=== PATIENT | female | born 1935 | race Caucasian/White ===

== ENCOUNTER → 2016-10-17 | Outpatient (CLI) | payer BC ==
[~2016-10-17] MED LIST: ASPEC81 PO; CHOL100027 PO; Calcium PO; MULTCHW4 PO; OMEP20TA PO; RANI150C4 PO
--- NOTE | 2016-10-17 15:15 | DIAGNOSTIC IMAGING REPORT ---
CHEST 2 VIEWS ROUTINE CLINICAL HISTORY: MONOCLONAL GAMMOPATHY UNCERTAIN SIGNIFICANCE COMPARISON STUDY: June 17 2012 FINDINGS: The heart is the upper limits of normal in size. Since the prior study, the patient developed a small left pleural effusion with associated left basilar airspace opacities. There is subtle interstitial thickening/edema.[ IMPRESSION: 1. Interval development of a small left pleural effusion with associated left basilar atelectasis/consolidation 2. Subtle diffuse interstitial thickening/edema Electronically signed by: Tristan Morales M.D. 10/17/2016 3:14 PM Dictated Date/Time: 10/17/2016 3:12 PM
--- NOTE | 2016-10-17 15:19 | DIAGNOSTIC IMAGING REPORT ---
SKELETAL SURVEY COMPLETE CLINICAL HISTORY: MONOCLONAL GAMMOPATHY UNCERTAIN SIGNIFICANCE COMPARISON STUDY: Chest 06/17/2012. FINDINGS: The heart is top normal in size. Mild diffuse interstitial thickening within the lungs. This may be chronic. S-shaped scoliosis of the thoracolumbar spine. Moderate to severe degenerative changes seen throughout the spine. No fractures within the visualized osseous structures. No lytic or blastic osseous lesions. IMPRESSION: No lytic or blastic osseous lesions within the visualized osseous structures appear Electronically signed by: Anant Gilliam M.D. 10/17/2016 3:18 PM Dictated Date/Time: 10/17/2016 3:15 PM
== END | disposition home or self-care (01) ==
LOC: C.RAD 14:34
PROVIDERS: ATTEND Internal Medicine Hematology & Oncology
DX: D47.2 Monoclonal gammopathy (principal)

== ENCOUNTER → 2016-11-14 | Outpatient (CLI) | payer BC ==
--- NOTE | 2016-11-15 15:22 | MAMMOGRAPHY REPORT ---
BILATERAL DIGITAL SCREENING MAMMOGRAM TOMOSYNTHESIS WITH CAD: 11/14/2016 CLINICAL HISTORY: Routine screening. Patient has no complaints. TECHNIQUE: Breast tomosynthesis in addition to standard 2D mammography was performed. Current study was also evaluated with a Computer Aided Detection (CAD) system. COMPARISON: Comparison is made to exams dated: 11/14/2015 mammogram, 11/10/2014 mammogram, 11/09/2013 [facility] mogram, 11/05/2012 mammogram, 11/05/2011 mammogram, and 11/02/2010 mammogram - [facility] BREAST COMPOSITION: The tissue of both breasts is heterogeneously dense, which may obscure small mas ses. FINDINGS: No suspicious masses, calcifications, or areas of architectural distortion are noted in ei ther breast. There has been no significant interval change compared to prior exams. IMPRESSION: ACR BI-RADS CATEGORY 2: BENIGN There is no mammographic evidence of malignancy. A 1 year screening mammogram is recommended. The pa tient will receive written notification of the results. Approximately 10% of breast cancers are not detected with mammography. A negative mammographic report should not delay biopsy if a clinically suggestive mass is present. Carol Collins M.D. ah/:11/14/2016 15:56:29 Playground Supervisor: Yadira SALGADO(R)(M), [facility] letter sent: Normal 1/2 BI-RADS Code: ACR BI-RADS Category 2: Benign
== END | disposition home or self-care (01) ==
LOC: C.MAMM 15:19
PROVIDERS: ATTEND Obstetrics & Gynecology
DX: Z12.31 Encounter for screening mammogram for malignant neoplasm of breast (principal)

== ENCOUNTER → 2016-12-26 | Outpatient (CLI) | payer BC ==
--- NOTE | 2016-12-26 14:44 | DIAGNOSTIC IMAGING REPORT ---
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 There is atherosclerosis of the aorta. No pneumothorax. There is decreased size of the previously noted left pleural effusion with only a trace effusion present. Additionally, there is improved aeration of the left lung base. Mild background interstitial coarsening is seen within the lower lung zones. There is convex left curvature of the lumbar spine. The bones appear grossly intact. IMPRESSION: Improved aeration of the left lung base with decreased size of left pleural effusion. The above report was generated using voice recognition software. It may contain grammatical, syntax or spelling errors. Electronically signed by: Gael Avelar M.D. 12/26/2016 2:43 PM Dictated Date/Time: 12/26/2016 2:41 PM
== END | disposition home or self-care (01) ==
LOC: C.RAD 14:12
PROVIDERS: ATTEND Internal Medicine Hematology & Oncology
DX: D47.2 Monoclonal gammopathy (principal)

== ENCOUNTER → 2017-02-27 | Outpatient (CLI) | payer BC ==
--- NOTE | 2017-02-27 14:54 | DIAGNOSTIC IMAGING REPORT ---
TWO VIEW CHEST CLINICAL HISTORY: Dyspnea on exertion. FINDINGS: PA and lateral chest radiographs are compared to study dated 12/26/2016. The heart is enlarged and there is atherosclerotic calcification of the thoracic aorta. The pulmonary vasculature is noncongested. Chronic interstitial thickening similar to previous. There is mild bibasilar atelectasis. A small left pleural effusion versus a Bochdalek hernia is seen on the lateral view. No airspace consolidation is seen typical for pneumonia or There is no pneumothorax. The skeletal structures are osteopenic. Degenerative change and scoliosis are seen in the thoracic spine. IMPRESSION: 1. Cardiomegaly with no active disease in the chest. 2. A small pleural effusion versus Bochdalek hernia is seen at the posterior left lung base on the lateral view. A small fat-containing hernia is favored as this is similar to previous. Electronically signed by: Phu Howard M.D. 02/27/2017 2:52 PM Dictated Date/Time: 02/27/2017 2:51 PM
== END | disposition home or self-care (01) ==
LOC: C.RAD 14:26
PROVIDERS: ATTEND Internal Medicine Hematology & Oncology
DX: D47.2 Monoclonal gammopathy (principal); I51.7 Cardiomegaly; R06.02 Shortness of breath

== ENCOUNTER → 2017-04-05 | Outpatient (CLI) | payer BC ==
--- NOTE | 2017-04-05 17:16 | ECHOCARDIOGRAM REPORT ---
*NOTICE TO RECEIVING CONSTITUTION PARTY AGENCY This information is strictly Confidential and protected under [place] law. [place] law prohibits you from making any further disclosure of this information unless further disclosure is expressly permitted by the written consent of the person to whom it pertains or is authorized by law. A general authorization for the release of medical or other information is not sufficient for this purpose. Hospital accepts no responsibility if the information is made available to any other person, INCLUDING THE PATIENT. Interpretation Summary * Name: CHAPO CARDOZA Study Date: 04/05/2017 02:06 PM * Patient Location: [facility] HR: 83 * : 1935 (M/d/yyyy) Gender: Female Height: 59 in * Age: 81 yrs Ethnicity: [place] Weight: 119 lb * Ordering Physician: Ethel Appiah * Referring Physician: Ethel Appiah * Performed By: Catherine Simon RCS * * Reason For Study: MONK * BSA: 1.5 m2 * -- Conclusions -- * Left ventricular systolic function is normal. * Diastolic dysfunction, Grade II, consistent with elevated left atrial pressure. * There is moderate mitral regurgitation. * Right ventricular systolic pressure is elevated at 30-40mmHg. Procedure Details * A complete two-dimensional transthoracic echocardiogram was performed (2D, M-mode, Doppler and color flow Doppler). Left Ventricle * The left ventricle is normal in size. * There is normal left ventricular wall thickness. * Focal thickening of the basal septum with no evidence of left ventricular outflow obstruction. * Left ventricular systolic function is normal. * Ejection Fraction = 60-65%. * Diastolic dysfunction, Grade II, consistent with elevated left atrial pressure. * The left ventricular wall motion is normal. Right Ventricle * The right ventricle is normal in size and function. Atria * The left atrial size is normal. * Right atrial size is normal. Mitral Valve * The mitral valve anatomy is normal. * There is moderate mitral regurgitation. * The mitral regurgitant jet is posteriorly directed, which is consistent with anterior leaflet pathology. Tricuspid Valve * The tricuspid valve is not well visualized, but is grossly normal. * There is trace tricuspid regurgitation. * Right ventricular systolic pressure is elevated at 30-40mmHg. Aortic Valve * The aortic valve is normal in structure and function. * The aortic valve is trileaflet. * No hemodynamically significant valvular aortic stenosis. * Trace aortic regurgitation. Great Vessels * The aortic root is normal size. Pericardium/Pleural * There is no pericardial effusion. MMode 2D Measurements and Calculations IVSd 0.89 cm IVSs 1.2 cm LVIDd 4.4 cm LVIDs 2.9 cm LVPWd 1.1 cm LVPWs 1.2 cm IVS/LVPW 0.79 FS 34.2 % EDV(Teich) 89.7 ml ESV(Teich) 32.9 ml EF(Teich) 63.3 % EDV(cubed) 87.6 ml ESV(cubed) 25.0 ml EF(cubed) 71.5 % % IVS thick 39.0 % % LVPW thick 3.9 % LV mass(C)d 151.2 grams LV mass(C)dI 102.2 grams/m\S\2 LV mass(C)s 105.4 grams LV mass(C)sI 71.3 grams/m\S\2 SV(Teich) 56.8 ml SI(Teich) 38.4 ml/m\S\2 SV(cubed) 62.6 ml SI(cubed) 42.3 ml/m\S\2 Ao root diam 2.9 cm Ao root area 6.4 cm\S\2 ACS 2.1 cm LA dimension 3.3 cm LA/Ao 1.2 LVOT diam 1.9 cm LVOT area 2.9 cm\S\2 Doppler Measurements and Calculations MV E max catalino 97.6 cm/sec MV A max catalino 81.4 cm/sec MV E/A 1.2 MV P1/2t max catalino 94.2 cm/sec MV P1/2t 66.0 msec MVA(P1/2t) 3.3 cm\S\2 MV dec slope 418.0 cm/sec\S\2 MV dec time 0.17 sec Ao V2 max 109.1 cm/sec Ao max PG 4.8 mmHg Ao max PG (full) 2.1 mmHg MALACHI(V,A) 2.2 cm\S\2 MALACHI(V,D) 2.2 cm\S\2 AI max catalino 394.8 cm/sec AI max PG 62.4 mmHg AI dec slope 212.7 cm/sec\S\2 AI P1/2t 543.7 msec LV V1 max PG 2.7 mmHg LV V1 max 82.0 cm/sec MR max catalino 516.1 cm/sec MR max PG 107.7 mmHg PA V2 max 89.5 cm/sec PA max PG 3.2 mmHg PI max catalino 261.0 cm/sec PI max PG 27.2 mmHg PI dec slope 368.5 cm/sec\S\2 PI P1/2t 207.4 msec TR max catalino 273.5 cm/sec
== END | disposition home or self-care (01) ==
LOC: C.CPL 13:22
PROVIDERS: ATTEND Family Medicine
DX: R06.09 Other forms of dyspnea (principal)

== ENCOUNTER 2017-04-21 08:54 | Inpatient (IN) | payer BC, OTHER ==
[~2017-04-21] VITALS: Ht 149.9 cm; Wt 54.4 kg
--- NOTE | 2017-04-21 09:38 | EMERGENCY ROOM VISIT NOTE ---
History Report prepared by Jaycee: Rios Roland Under the Supervision of: Dr. Chaparro Lai M.D. First contact with patient: 09:08 Chief Complaint: ILLNESS Stated Complaint: ILLNESS History of Present Illness The patient is an 81 year old female with a history of a bladder infection and temporal arteritis who presents to the Emergency Room via EMS with complaints of a persistent illness that started 4 days ago. She says that she has been in bed for these past 4 days. Per the nursing staff, the patient has been a bit nauseated, and has not been eating and drinking as much as she should due to the nausea. The patient had one episode of vomiting over the 4 day period, but she says that she persistently feels like she needs to vomit. She received 4 Zofran in route. She adds that she was sweating a bit, but has never taken her temperature. She notes that she has had a bit of a cough and a mild headache. The patient notes that a week ago, she had a bit of burning with urination and there was some blood in her urine. The patient denies any back pain, abdominal pain, or diarrhea. Per the patient's , the patient had a recent echocardiogram, and the patient was told that there is a chance that she may have multiple myeloma. She is not on any blood thinners. The patient does not have a history of a heart attack. Source of History: patient, spouse/significant other (now I already the area : There is 88 she is a follow-up with the die attaching machine tender Dl it lasted they are to make an nausea she's done in is a long-acting 1 I thanks), nursing staff Onset: 4 days ago Position: other (global - illness) Quality: other (chance she may have multiple myeloma) Timing: other (persistent) Associated Symptoms: + headache (mild), + diaphoresis, + cough, + nausea, + vomiting, + urinary symptoms (a week ago burning with blood), No abdominal pain , No back pain, No diarrhea Review of Systems See HPI for pertinent positives & negatives. A total of 10 systems reviewed and were otherwise negative. Past Medical & Surgical Medical Problems: (1) Osteoarthritis (2) Pneumonia (3) Sepsis (4) Temporal arteritis Old medical records were reviewed. Nurse's notes were reviewed and I agree with. Family History Family history omitted secondary to patient's advanced age. Social History Smoking Status: Never Smoker Drug Use: none Marital Status: Housing Status: lives with significant other Occupation Status: retired Current/Historical Medications Scheduled Aspirin (Aspirin Ec), 81 MG PO DAILY Calcium/Vitamin D (Os-Ancelmo 500 Plus D), 1 TAB PO DAILY Cholecalciferol (Vitamin D 1000 Unit), 2,000 INTER.UNIT PO DAILY Multivitamin (Multivitamin), 1 TAB PO DAILY Omeprazole (Omeprazole), 20 MG PO DAILY Allergies Coded Allergies: Sulfamethoxazole w/Trimethoprim (Verified Allergy, Intermediate, RASH, ) Naproxen (Unverified Allergy, Mild, 04/21/17) Piroxicam (Unverified Allergy, Mild, 04/21/17) Prochlorperazine (Unverified Allergy, Mild, 04/21/17) Amoxicillin (Verified Adverse Reaction, Unknown, NAUSEA, 04/21/17) Cephalexin (Verified Adverse Reaction, Unknown, NAUSEA, 04/21/17) Clavulanic Acid (Verified Adverse Reaction, Unknown, NAUSEA, 04/21/17) Physical Exam Vital Signs Date Time Temp Pulse Resp B/P (MAP) Pulse Ox O2 Delivery O2 Flow Rate FiO2 04/21/17 13:01 122/55 04/21/17 12:59 101 33 95 04/21/17 12:31 128/56 04/21/17 12:29 96 28 98 04/21/17 12:17 100 04/21/17 12:03 128/56 04/21/17 11:59 99 22 96 04/21/17 11:29 104 29 89 04/21/17 10:59 101 28 89 04/21/17 10:54 101 34 89 04/21/17 10:24 103 27 89 04/21/17 09:54 102 27 88 04/21/17 09:24 107 28 90 04/21/17 09:06 36.8 118 24 156/62 91 Room Air 04/21/17 09:01 117 04/21/17 08:57 156/62 Physical Exam General: Non-ill appearing older female in no acute distress. HEENT: Normal cephalic atraumatic. Pupils are equal round and reactive to light. Sclerae anicteric. Extraocular movements are intact. Oropharynx is pink with moist mucous membranes. No swelling of the mouth lips or tongue. Neck: Supple with a midline trachea. No meningeal signs or stiffness, no JVD or bruits. No Stridor. Chest: Clear to auscultation bilaterally. No wheezes or rhonchi. No increased work of breathing. Heart: regular rate and rhythm. Abdomen: Soft nontender, nondistended without rebound guarding or rigidity. Extremities: No cyanosis clubbing or edema. No calf tenderness or assymetry Spine/Back. Non tender to palpation. No CVA tenderness Skin: Good turgor without rashes. Neurologic exam: Cranial nerves two through 12 are intact. Motor and sensation are intact and symmetrical throughout. Medical Decision & Procedures ER Provider Diagnostic Interpretation: X-ray results as stated below per interpretation by me and the radiologist: CHEST ONE VIEW PORTABLE CLINICAL HISTORY: 81 years-old Female presenting with CHEST PAIN. TECHNIQUE: Portable upright AP view of the chest was obtained. COMPARISON: 02/27/[address] from 04/04/2017. FINDINGS: Atherosclerosis of the aortic arch. Cardiac silhouette mildly enlarged. Interval development of a focal opacity in the right upper and lower lobes. Small right pleural effusion. No pneumothorax. Left lung and pleural space clear. Scoliosis and osteopenia. General changes of the left glenohumeral joint. Upper abdomen normal. IMPRESSION: 1. Findings consistent with pneumonia most likely involving the right upper and lower lobes with a small right parapneumonic effusion. Electronically signed by: Coy Hughes M.D. 04/21/2017 9:52 AM Dictated Date/Time: 04/21/2017 9:50 AM Laboratory Results 04/21/17 10:03 Red Blood Count 4.19, Mean Corpuscular Volume 88.5, Mean Corpuscular Hemoglobin 29.8, Mean Corpuscular Hemoglobin Concent 33.7, Mean Platelet Volume 10.6, Neutrophils (%) (Auto) 91.3, Lymphocytes (%) (Auto) 2.5, Monocytes (%) (Auto) 5.7, Eosinophils (%) (Auto) 0.0, Basophils (%) (Auto) 0.0, Neutrophils # (Auto) 20.20, Lymphocytes # (Auto) 0.55, Monocytes # (Auto) 1.26, Eosinophils # (Auto) 0.00, Basophils # (Auto) 0.01 04/21/17 10:03 Test 04/21/17 09:20 04/21/17 10:03 04/21/17 11:53 04/21/17 12:14 Urine Color ELOY Urine Appearance CLEAR (CLEAR) Urine pH 5.0 (4.5-7.5) Urine Specific [place] 1.037 (1.000-1.030) Urine Protein 3+ (NEG) Urine Glucose (UA) NEG (NEG) Urine Ketones 3+ (NEG) Urine Occult Blood 1+ (NEG) Urine Nitrite NEG (NEG) Urine Bilirubin NEG (NEG) Urine Urobilinogen NEG (NEG) Urine Leukocyte Esterase TRACE (NEG) Urine WBC (Auto) 1-5 /hpf (0-5) Urine RBC (Auto) 0-4 /hpf (0-4) Urine Hyaline Casts (Auto) 1-5 /lpf (0-5) Urine Epithelial Cells (Auto) 10-20 /lpf (0-5) Urine Bacteria (Auto) NEG (NEG) White Blood Count 22.13 K/uL (4.8-10.8) Red Blood Count 4.19 M/uL (4.2-5.4) Hemoglobin 12.5 g/dL (12.0-16.0) Hematocrit 37.1 % (37-47) Mean Corpuscular Volume 88.5 fL (80-100) Mean Corpuscular Hemoglobin 29.8 pg (25-34) Mean Corpuscular Hemoglobin Concent 33.7 g/dl (32-36) Platelet Count 170 K/uL (130-400) Mean Platelet Volume 10.6 fL (7.4-10.4) Neutrophils (%) (Auto) 91.3 % Lymphocytes (%) (Auto) 2.5 % Monocytes (%) (Auto) 5.7 % Eosinophils (%) (Auto) 0.0 % Basophils (%) (Auto) 0.0 % Neutrophils # (Auto) 20.20 K/uL (1.4-6.5) Lymphocytes # (Auto) 0.55 K/uL (1.2-3.4) Monocytes # (Auto) 1.26 K/uL (0.11-0.59) Eosinophils # (Auto) 0.00 K/uL (0-0.5) Basophils # (Auto) 0.01 K/uL (0-0.2) RDW Standard Deviation 44.2 fL (36.4-46.3) RDW Coefficient of Variation 13.8 % (11.5-14.5) Immature Granulocyte % (Auto) 0.5 % Immature Granulocyte # (Auto) 0.11 K/uL (0.00-0.02) Poikilocytosis PRESENT Anion Gap 6.0 mmol/L (3-11) Est Creatinine Clear Calc Drug Dose 61.4 ml/min Estimated GFR () 102.5 Estimated GFR (Non- 88.4 BUN/Creatinine Ratio 36.5 (10-20) Calcium Level 8.9 mg/dl (8.5-10.1) Total Bilirubin 0.9 mg/dl (0.2-1) Direct Bilirubin 0.3 mg/dl (0-0.2) Aspartate Amino Transf (AST/SGOT) 13 U/L (15-37) Alanine Aminotransferase (ALT/SGPT) 12 U/L (12-78) Alkaline Phosphatase 106 U/L (45-117) Total Creatine Kinase 53 U/L (26-192) Creatine Kinase MB 0.8 ng/ml (0.5-3.6) Creatine Kinase MB Ratio 1.5 (0-3.0) Pro-B-Type Natriuretic Peptide 1858 pg/ml (0-1800) Total Protein 6.9 gm/dl (6.4-8.2) Albumin 2.8 gm/dl (3.4-5.0) Lipase 57 U/L (73-393) Thyroid Stimulating Hormone (TSH) 0.533 uIu/ml (0.300-4.500) Troponin I < 0.015 ng/ml (0-0.045) Bedside Lactic Acid Venous 1.43 mmol/L (0.90-1.70) Test 04/21/17 12:55 Lactic Acid Level 1.0 mmol/L (0.4-2.0) Laboratory studies as stated above per my review. Medications Administered Medications (Trade) Dose Ordered Sig/Cydney Route Start Time Stop Time Status Last Admin Dose Admin Sodium Chloride 1,000 ml @ 999 mls/hr Q1H1M STAT IV 04/21/17 11:26 04/21/17 12:26 DC 04/21/17 11:26 999 MLS/HR Levofloxacin (Levaquin / D5W) 750 mg NOW STAT IV 04/21/17 11:29 04/21/17 11:31 DC 04/21/17 11:29 750 MG ECG Indication: nausea Rate (beats per minute): 114 Rhythm: sinus tachycardia Findings: no acute ischemic change, no ectopy Comparison ECG Date: compared to March 31 1996, rate has increased ED Course 0928: Past medical records reviewed. The patient was evaluated in room A12B, and a complete history and physical examination were performed. 1124: Upon reevaluation, the patient is a bit hypoxemic so she was put on oxygen. I discussed the results and treatment plan with the patient. She verbalized agreement of the treatment plan. The patient will be evaluated for further management. 1129: Ordered Levaquin / D5W 750 mg IV. 1133: I discussed the patient with Dr. Pat KEENAN specimen transporter - he will evaluate the patient for further treatment. Medical Decision Differentials include UTI, pneumonia, cardiac disease, dehydration, electrolyte or metabolic abnormality, infection. This patient comes in as described above. She was placed in room A12. She is here for treatment and evaluation of not feeling well. She is some nonspecific complaints. She feels generally weak. She's had a little bit of a cough and she had some urinary symptoms a couple days ago. IV access established was hydrated with a liter of IV normal saline bolus. She is afebrile have her white count came back elevated 22,000. Her lactic acid is not elevated. She's no significant electrolyte or metabolic abnormalities. Her chest x-ray is very consistent with pneumonia. EKG does not suggest acute coronary syndrome or arrhythmia. She was given Levaquin 750 mg IV based on her insensitivity/ allergies I think this is good coverage initially. She will be admitted for further inpatient treatment and evaluation. She was mildly hypoxemic and with an O2 sat in the high 80s and was placed on oxygen 2 L was comfortable with this.. Medication Reconcilliation Current Medication List: was personally reviewed by me Blood Pressure Screening Patient's blood pressure: Elevated blood pressure Blood pressure disposition: Elevated BP felt to be situational Consults Time Called: 1130 Consulting Physician: Dr. Pat KEENAN specimen transporter Returned Call: 1133 I discussed the patient with Dr. Pat KEENAN specimen transporter - he will evaluate the patient for further treatment. Impression Primary Impression: PNA (pneumonia) Additional Impression: Hypoxemia Scribe Attestation The scribe's documentation has been prepared under my direction and personally reviewed by me in its entirety. I confirm that the note above accurately reflects all work, treatment, procedures, and medical decision making performed by me. Departure Information Dispostion Being Evaluated By Hospitalist Referrals Ethel Appiah MD (PCP) Patient Instructions My [facility] Problem Qualifiers
--- NOTE | 2017-04-21 09:53 | DIAGNOSTIC IMAGING REPORT ---
CHEST ONE VIEW PORTABLE CLINICAL HISTORY: 81 years-old Female presenting with CHEST PAIN. TECHNIQUE: Portable upright AP view of the chest was obtained. COMPARISON: 02/27/[address] from 04/04/2017. FINDINGS: Atherosclerosis of the aortic arch. Cardiac silhouette mildly enlarged. Interval development of a focal opacity in the right upper and lower lobes. Small right pleural effusion. No pneumothorax. Left lung and pleural space clear. Scoliosis and osteopenia. General changes of the left glenohumeral joint. Upper abdomen normal. IMPRESSION: 1. Findings consistent with pneumonia most likely involving the right upper and lower lobes with a small right parapneumonic effusion. Electronically signed by: Coy Hughes M.D. 04/21/2017 9:52 AM Dictated Date/Time: 04/21/2017 9:50 AM
[2017-04-21 10:19] LABS: HEMATOCRIT 37.1 % (37-47); HEMOGLOBIN 12.5 g/dL (12.0-16.0); MEAN CELL VOLUME 88.5 fL (80-100); MEAN CORPUSCULAR HEMOGLOBIN 29.8 pg (25-34); MEAN CORPUSCULAR HGB CONC 33.7 g/dl (32-36); MEAN PLATELET VOLUME 10.6 fL (7.4-10.4); PLATELET COUNT 170 K/uL (130-400); RED CELL DISTRIBUTION WIDTH CV 13.8 % (11.5-14.5); RED CELL DISTRIBUTION WIDTH SD 44.2 fL (36.4-46.3); WHITE BLOOD COUNT 22.13 K/uL (4.8-10.8)
[2017-04-21] MEDS ORDERED: ASPI81TA28 PO ×2 (10:24)
[2017-04-21] MEDS ORDERED: CALC500C70 PO ×2 (10:24)
[2017-04-21] MEDS ORDERED: MULT-506 PO ×2 (10:24)
[2017-04-21 10:39] LABS: ALBUMIN 2.8 gm/dl (3.4-5.0); CALCIUM 8.9 mg/dl (8.5-10.1); CREATININE 0.53 mg/dl (0.60-1.20); POTASSIUM 3.7 mmol/L (3.5-5.1)
[2017-04-21 10:43] LABS: BASO ABS # 0.01 K/uL (0-0.2); IG# 0.11 K/uL (0.00-0.02); LYMPH % 2.5 %; LYMPH ABS # 0.55 K/uL (1.2-3.4); MONO % 5.7 %; MONO ABS # 1.26 K/uL (0.11-0.59); NEUT % 91.3 %
[2017-04-21 10:50] LABS: CKMB 0.8 ng/ml (0.5-3.6); TOTAL PROTEIN 6.9 gm/dl (6.4-8.2)
[2017-04-21] MEDS ORDERED: SODIUM CHLORIDE 0.9% 1000ML 1,000 ML IV STA (11:26)
[2017-04-21] MEDS ORDERED: LEVAQUIN 750MG / 150ML D5W IV STA (11:29)
[2017-04-21] MEDS ORDERED: ONDANSETRON INJ 2 MG/ML 2 ML VIAL IV PRN (12:00)
[2017-04-21] MEDS ORDERED: ACETAMINOPHEN 325 MG TAB PO PRN (12:00)
[2017-04-21] MEDS ORDERED: ENOXAPARIN 40 MG/0.4 ML SYR SQ ONE (12:45)
--- NOTE | 2017-04-21 12:49 | History and Physical ---
History & Physical Date & Time of Service: Apr 21, 2017 at 12:17 Chief Complaint: Illness Primary Care Physician: Ethel Appiah MD History of Present Illness Source: patient, family, hospital records 81 yo female with 4 days of generalized malaise, fatigue, poor appetite, fever and chills and night sweats. Admits to cough with minimum sputum production. She has not really had anything to eat in 4 days, some liquid intake. Still making urine but less. She reports never having an illness like this. In the ED she was tachycardic, leukocytosis of 22k, and she was hypoxic. CXR shows right upper and middle lobe infiltrate. Started on IV fluids and Levaquin and admission requested. Patient has a medical history of GERD and temporal arteritis. No significant history of NC, CVA, DM or cancer. Past Medical/Surgical History GERD Vitamin D deficiency Osteoarthritis Temporal arteritis No surgical history Family History Father - coronary artery disease Mother - rheumatoid arthritis 3 sons, all healthy Social History Smoking Status: Never Smoker Alcohol Use: occasionally Drug Use: none Marital Status: Housing status: lives with family Occupational Status: retired Multi-Drug Resistant Organisms History of MDRO: No Allergies Coded Allergies: Sulfamethoxazole w/Trimethoprim (Verified Allergy, Intermediate, RASH, ) Naproxen (Unverified Allergy, Mild, 04/21/17) Piroxicam (Unverified Allergy, Mild, 04/21/17) Prochlorperazine (Unverified Allergy, Mild, 04/21/17) Amoxicillin (Verified Adverse Reaction, Unknown, NAUSEA, 04/21/17) Cephalexin (Verified Adverse Reaction, Unknown, NAUSEA, 04/21/17) Clavulanic Acid (Verified Adverse Reaction, Unknown, NAUSEA, 04/21/17) Home Medications Scheduled Aspirin (Aspirin Ec), 81 MG PO DAILY Calcium/Vitamin D (Os-Ancelmo 500 Plus D), 1 TAB PO DAILY Cholecalciferol (Vitamin D 1000 Unit), 2,000 INTER.UNIT PO DAILY Multivitamin (Multivitamin), 1 TAB PO DAILY Omeprazole (Omeprazole), 20 MG PO DAILY Review of Systems Constitutional: + fever, + chills, + sweats, + weakness, + fatigue, No weight loss Eyes: No worsening of vision, No eye pain, No redness, No discharge, No diplopia, No problem reported ENT: No hearing loss, No unusual epistaxis, No nasal symptoms, No sore throat, No tinnitus, No dental problems, No trouble swallowing, No problem reported Respiratory: + cough, + sputum, + dyspnea on exertion, No wheezing, No shortness of breath, No dyspnea at rest, No hemoptysis, No problem reported Cardiovascular: No chest pain, No orthopnea, No PND, No edema, No claudication , No palpitations, No problem reported Abdomen: + problem reported (poor appetite), No pain, No nausea, No vomiting, No diarrhea, No constipation, No GI bleeding Musculoskeletal: No joint pain, No muscle pain, No swelling, No calf pain, No problem reported Genitourinary - Female: No dysuria, No urinary frequency, No urinary urgency, No urinary incontinence, No urinary retention, No hematuria Neurologic: + weakness, No memory loss, No paralysis, No numbness/tingling, No vertigo, No balance problems, No problem reported Psychiatric: No depression symptoms, No anhedonism, No anxiety, No insomnia, No substance abuse, No problem reported Endocrine: No fatigue, No excessive thirst, No excessive urination, No problem reported Hematologic / Lymphatic: No abnormal bleeding/bruising, No clotting problems, No swollen lymph nodes, No night sweats, No problem reported Integumentary: No rash, No itch, No new/changing skin lesions, No color change , No bleeding, No problem reported Allergic / Immunologic: No environmental allergies, No seasonal allergies, No pet sensitivities, No food allergies, No hives, No frequent infections, No poor healing, No prolonged convalescence, No problem reported Physical Exam Vital Signs Date Time Temp Pulse Resp B/P (MAP) Pulse Ox O2 Delivery O2 Flow Rate FiO2 04/21/17 10:54 101 34 89 04/21/17 10:24 103 27 89 04/21/17 09:54 102 27 88 04/21/17 09:24 107 28 90 04/21/17 09:06 36.8 118 24 156/62 91 Room Air 04/21/17 09:01 117 04/21/17 08:57 156/62 General Appearance: WD/WN, no apparent distress Head: normocephalic, atraumatic Eyes: normal inspection, EOMI, sclerae normal ENT: normal ENT inspection, hearing grossly normal, pharynx normal Neck: supple, no adenopathy, no JVD, trachea midline Respiratory/Chest: chest non-tender, + decreased breath sounds, + accessory muscle use, + crackles (right) Cardiovascular: no edema, no gallop, no JVD, no murmur, normal peripheral pulses, + tachycardia Abdomen/GI: normal bowel sounds, non tender, soft, no organomegaly Back: normal inspection, no CVA tenderness, no muscle spasm, normal range of motion Extremities/Musculoskelatal: normal inspection, no calf tenderness, normal capillary refill, no pedal edema, normal range of motion, pelvis stable 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, no motor/sensory deficits, alert, normal mood/affect, normal reflexes, oriented x 3 Skin: normal color, warm/dry, no rash Diagnostics Laboratory Results Results Past 24 Hours Test 04/21/17 09:20 04/21/17 09:35 04/21/17 10:03 04/21/17 11:53 Range/Units Urine Color ELOY Urine Appearance CLEAR CLEAR Urine pH 5.0 4.5-7.5 Urine Specific [place] 1.037 1.000-1.030 Urine Protein 3+ NEG Urine Glucose (UA) NEG NEG Urine Ketones 3+ NEG Urine Occult Blood 1+ NEG Urine Nitrite NEG NEG Urine Bilirubin NEG NEG Urine Urobilinogen NEG NEG Urine Leukocyte Esterase TRACE NEG Urine WBC (Auto) 1-5 0-5 /hpf Urine RBC (Auto) 0-4 0-4 /hpf Urine Hyaline Casts (Auto) 1-5 0-5 /lpf Urine Epithelial Cells (Auto) 10-20 0-5 /lpf Urine Bacteria (Auto) NEG NEG Creatine Kinase MB Ratio 1.5 0-3.0 White Blood Count 22.13 4.8-10.8 K/uL Red Blood Count 4.19 4.2-5.4 M/uL Hemoglobin 12.5 12.0-16.0 g/dL Hematocrit 37.1 37-47 % Mean Corpuscular Volume 88.5 80-100 fL Mean Corpuscular Hemoglobin 29.8 25-34 pg Mean Corpuscular Hemoglobin Concent 33.7 32-36 g/dl Platelet Count 170 130-400 K/uL Mean Platelet Volume 10.6 7.4-10.4 fL Neutrophils (%) (Auto) 91.3 % Lymphocytes (%) (Auto) 2.5 % Monocytes (%) (Auto) 5.7 % Eosinophils (%) (Auto) 0.0 % Basophils (%) (Auto) 0.0 % Neutrophils # (Auto) 20.20 1.4-6.5 K/uL Lymphocytes # (Auto) 0.55 1.2-3.4 K/uL Monocytes # (Auto) 1.26 0.11-0.59 K/uL Eosinophils # (Auto) 0.00 0-0.5 K/uL Basophils # (Auto) 0.01 0-0.2 K/uL RDW Standard Deviation 44.2 36.4-46.3 fL RDW Coefficient of Variation 13.8 11.5-14.5 % Immature Granulocyte % (Auto) 0.5 % Immature Granulocyte # (Auto) 0.11 0.00-0.02 K/uL Poikilocytosis PRESENT Sodium Level 133 136-145 mmol/L Potassium Level 3.7 3.5-5.1 mmol/L Chloride Level 101 98-107 mmol/L Carbon Dioxide Level 27 21-32 mmol/L Anion Gap 6.0 3-11 mmol/L Blood Urea Nitrogen 19 7-18 mg/dl Creatinine 0.53 0.60-1.20 mg/dl Est Creatinine Clear Calc Drug Dose 61.4 ml/min Estimated GFR () 102.5 Estimated GFR (Non- 88.4 BUN/Creatinine Ratio 36.5 10-20 Random Glucose 100 70-99 mg/dl Calcium Level 8.9 8.5-10.1 mg/dl Total Bilirubin 0.9 0.2-1 mg/dl Direct Bilirubin 0.3 0-0.2 mg/dl Aspartate Amino Transf (AST/SGOT) 13 15-37 U/L Alanine Aminotransferase (ALT/SGPT) 12 12-78 U/L Alkaline Phosphatase 106 45-117 U/L Total Creatine Kinase 53 26-192 U/L Creatine Kinase MB 0.8 0.5-3.6 ng/ml Pro-B-Type Natriuretic Peptide 1858 0-1800 pg/ml Total Protein 6.9 6.4-8.2 gm/dl Albumin 2.8 3.4-5.0 gm/dl Lipase 57 73-393 U/L Thyroid Stimulating Hormone (TSH) 0.533 0.300-4.500 uIu/ml Microbiology Results 04/21/17 Blood Culture, Received Pending 04/21/17 Blood Culture, Received Pending 04/21/17 Urine Culture, Received Pending Diagnostic Radiology CXR - right upper and middle lobe infiltrates, left lung clear EKG sinus tachycardia, left atrial enlargement Impression Assessment and Plan 81 yo female with severe sepsis due to right sided multifocal pneumonia - Severe sepsis due to pneumonia, right sided upper and middle lobe presents with leukocytosis, tachycardia, hypoxic respiratory failure admit to tele Levaquin and Vancomycin, would give additional Cefepime or Zosyn but she has allergies check MRSA swab, if negative then d/c Vanco check lactic acid no signs of shock as BP has been preserved given her age and multilobar pneumonia, patient has potential to get worse before she gets worse NSS + K at 100cc/hr after fluid bolus in the ED - Hypoxic respiratory failure: due to pneumonia, should improve with treatment of pneumonia - Dehydration: BUN and Cr stable, treat with IV fluids regular diet, appetite should improve with antibiotics - GERD: PPI - DVT prophylaxis: Lovenox Level of Care Telemetry Resuscitation Status FULL RESUSCITATION VTE Prophylaxis VTE Risk Assessment Done? Y/N: Yes Risk Level: High Given or contraindicated: Enoxaparin (Lovenox)SQ Additional Copies To Ethel Appiah M.D.
[2017-04-21] MEDS ORDERED: VANCOMYCIN CONSULT ACTIVE PRN (13:45)
[2017-04-21] MEDS ORDERED: VANCOMYCIN IV 1,250 MG in SODIUM CHLORIDE 0.9% 250ML 250 ML IV ONE (14:00)
[2017-04-21 14:09] LABS: PTT PATIENT 27.3 SECONDS (21.0-31.0)
[2017-04-21 14:57] VITALS: BP 140/51; PULSE 113; TEMP 36.9; O2SAT 92; Ht 149.9 cm; Wt 54.4 kg
[2017-04-21] MEDS ORDERED: LEVOFLOXACIN CONSULT ACTIVE PRN (15:30)
--- NOTE | 2017-04-21 15:44 | Pharmacy Progress Note ---
Pharmacy Abx Initial Consult Date of Service Apr 21, 2017. Pharmacy Dosing Scope Date of Consult: 04/21/17 Consultation requested by: Dr. Thai Choudhary Pharmacy is consulted to initiate Vancomycin IV dosing therapy, order appropriate labs and adjust drug dose/frequency. Subjective The patient is a 81 year old female admitted on Apr 21, 2017 at 15:10. Objective Height (Feet): 4 Height (Inches): 11.00 Weight (Kilograms): 54.000 Vital Signs (Past 12Hrs) Vital Signs Past 12 Hours Date Time Temp Pulse Resp B/P (MAP) Pulse Ox O2 Delivery O2 Flow Rate FiO2 04/21/17 14:57 36.9 113 18 140/51 92 Nasal Cannula 2.0 04/21/17 14:23 36.8 91 30 121/55 96 04/21/17 14:06 91 30 96 04/21/17 14:01 121/55 04/21/17 13:36 97 26 94 04/21/17 13:31 126/58 04/21/17 13:06 98 33 94 04/21/17 13:01 122/55 04/21/17 12:59 101 33 95 04/21/17 12:31 128/56 04/21/17 12:29 96 28 98 04/21/17 12:17 100 04/21/17 12:03 128/56 04/21/17 11:59 99 22 96 04/21/17 11:29 104 29 89 04/21/17 10:59 101 28 89 04/21/17 10:54 101 34 89 04/21/17 10:24 103 27 89 04/21/17 09:54 102 27 88 04/21/17 09:24 107 28 90 04/21/17 09:06 36.8 118 24 156/62 91 Room Air 04/21/17 09:01 117 04/21/17 08:57 156/62 Lab Results (24Hrs) Laboratory Tests (24 Hours) Test 04/21/17 10:03 04/21/17 12:55 White Blood Count 22.13 K/uL (4.8-10.8) H Red Blood Count 4.19 M/uL (4.2-5.4) L Hemoglobin 12.5 g/dL (12.0-16.0) Hematocrit 37.1 % (37-47) Mean Corpuscular Volume 88.5 fL (80-100) Mean Corpuscular Hemoglobin 29.8 pg (25-34) Mean Corpuscular Hemoglobin Concent 33.7 g/dl (32-36) Platelet Count 170 K/uL (130-400) Mean Platelet Volume 10.6 fL (7.4-10.4) H Neutrophils (%) (Auto) 91.3 % Lymphocytes (%) (Auto) 2.5 % Monocytes (%) (Auto) 5.7 % Eosinophils (%) (Auto) 0.0 % Basophils (%) (Auto) 0.0 % Neutrophils # (Auto) 20.20 K/uL (1.4-6.5) H Lymphocytes # (Auto) 0.55 K/uL (1.2-3.4) L Monocytes # (Auto) 1.26 K/uL (0.11-0.59) H Eosinophils # (Auto) 0.00 K/uL (0-0.5) Basophils # (Auto) 0.01 K/uL (0-0.2) Total Creatine Kinase 53 U/L (26-192) Lactic Acid Level 1.0 mmol/L (0.4-2.0) Micro Results Date/Time Source Procedure Growth Status 04/21/17 11:57 Blood Blood Culture Pending Received 04/21/17 11:53 Blood Blood Culture Pending Received 04/21/17 09:20 Urine,Catheterized Urine Culture Pending Received Assessment & Plan Assessment 81 year old female admitted with Pneumonia and Sepsis. Plan Vancomycin for treatment of Sepsis/ Pneumonia. Vancomycin IV * Loading dose: 1250 mg IV x1 (23 mg/kg) given at 1442 today. * Maintenance dose: Vancomycin 1000 mg IV (18.5 mg/kg) every 24 hours ordered to start at noon tomorrow. * Estimated P'kinetics: Ke = 0.036 /hr, t1/2 = 19.3 hrs, Vd = 0.7 L/kg * Goal trough level for Pneumonia: 15 to 20 mcg/mL * Trough level ordered for 04/24/17 before dose at 1200. Pharmacy will continue to follow and will adjust dose/frequency as necessary. Thank you.
--- NOTE | 2017-04-21 16:00 | NUR ---
A: Nursing assessment complete and documented in emr. A&O. VS WNL. Denies pain and increased sob. ST per tele. Lungs cta. Assist of one with activity. No complaints or s/s of acute distress noted at this time. Call jaimes within reach and pt instructed to ring for assistance. Will continue to monitor. See emr for full assessment data.
[2017-04-21] MEDS: NSS + 20MEQ KCL 1000ML 1,000 ML IV SCH (17:10)
[2017-04-21 18:45] VITALS: BP 125/66; PULSE 103; TEMP 36.8; O2SAT 92
--- NOTE | 2017-04-21 20:10 | NUR ---
A: Patient resting in bed with eyes closed - responds to verbal stimuli and denies any complaints. Has a dry nonproductive cough. Respirations even and unlabored at rest - on RA. SR 90s on tele. IVF infusing without difficulty. Call jaimes within reach. Will monitor patient.
[2017-04-22] VITALS (7 sets, daily range): BP systolic 122–131; BP diastolic 55–70; PULSE 79–98; TEMP 36.6–37.4; O2SAT 91–98
--- NOTE | 2017-04-22 00:15 | NUR ---
A: Patient resting in bed - assisted to and from bathroom with minimal assistance. Denies complaints. SR 80 - 90s on tele. IVF infusing. Call jaimes within reach. Will monitor.
[2017-04-22] MEDS: NSS + 20MEQ KCL 1000ML 1,000 ML IV SCH ×2 (05:11→17:21)
[2017-04-22 05:49] LABS: BASO % 0.1 %; BASO ABS # 0.01 K/uL (0-0.2); EOS % 0.1 %; EOS ABS # 0.01 K/uL (0-0.5); HEMATOCRIT 33.3 % (37-47); HEMOGLOBIN 10.9 g/dL (12.0-16.0); IG# 0.06 K/uL (0.00-0.02); LYMPH % 6.2 %; LYMPH ABS # 0.84 K/uL (1.2-3.4); MEAN CELL VOLUME 89.8 fL (80-100); MEAN CORPUSCULAR HEMOGLOBIN 29.4 pg (25-34); MEAN CORPUSCULAR HGB CONC 32.7 g/dl (32-36); MONO % 7.5 %; MONO ABS # 1.01 K/uL (0.11-0.59); NEUT % 85.7 %; NEUT ABS # 11.61 K/uL (1.4-6.5); PLATELET COUNT 156 K/uL (130-400); RED CELL DISTRIBUTION WIDTH CV 13.9 % (11.5-14.5); RED CELL DISTRIBUTION WIDTH SD 45.8 fL (36.4-46.3); WHITE BLOOD COUNT 13.54 K/uL (4.8-10.8)
[2017-04-22 06:25] LABS: CALCIUM 8.1 mg/dl (8.5-10.1); CREATININE 0.38 mg/dl (0.60-1.20); POTASSIUM 3.6 mmol/L (3.5-5.1)
[2017-04-22] MEDS: ASPIRIN 81 MG ECTAB PO SCH (08:30)
[2017-04-22] MEDS: PANTOprazole SOD 40 MG TAB PO SCH (08:31)
[2017-04-22] MEDS: CALCIUM 600MG + VIT D 400 IU TAB PO SCH (08:31)
[2017-04-22] MEDS: CHOLECALCIFEROL 1000 INTER.UNIT TAB PO SCH (08:31)
[2017-04-22] MEDS: ENOXAPARIN 40 MG/0.4 ML SYR SQ SCH (08:32)
[2017-04-22] MEDS ORDERED: NON-FORMULARY MEDICATION (Omeprazole 20 MG) PO SCH (09:00)
--- NOTE | 2017-04-22 09:58 | NUR ---
A/ID: Assessment completed, see EMR. Alert and oriented X4. VSS. Denies CP or SOB. Lungs clear on 2L N/C. Bowel sounds WNL. Voiding. Skin pale and fragile. Skin issues noted in EMR. OOB to chair with assist of 1 and o2. + pedal pulses with +2 pitting edema noted to BLE. Tolerating diet. Call jaimes within reach. at bedside. Verbalizes no needs. Plans for discharge uncertain at this time.
--- NOTE | 2017-04-22 10:49 | Progress Note ---
Subjective Date of Service: Apr 22, 2017. Subjective Patient reports feeling better. Patient however still complains of pleuritic chest pain, especially with deep inspiration. Patient also reports that her SOB has improved. Problem List Medical Problems: (1) Hypoxemia Status: Acute (2) PNA (pneumonia) Status: Acute Review of Systems Constitutional: No fever, No chills Respiratory: + cough, + shortness of breath, No sputum, No wheezing Cardiac: + chest pain, No orthopnea Breast: No breast lump Abdomen: No pain, No nausea Neurologic: + paralysis, No memory loss Psychiatric: No depression symptoms, No anhedonism Heme: No abnormal bleeding/bruising Endo: No fatigue Skin: No rash All Other Systems: Reviewed and Negative Medications Current Inpatient Medications Medications (Trade) Dose Ordered Sig/Cydney Route Start Time Stop Time Status Last Admin Dose Admin Acetaminophen (Tylenol Tab) 650 mg Q4H PRN PO 04/21/17 12:00 05/21/17 11:59 Ondansetron HCl (Zofran Inj) 4 mg Q6H PRN IV 04/21/17 12:00 05/21/17 11:59 Potassium Chloride/Sodium Chloride 1,000 ml @ 80 mls/hr [id number] IV 04/21/17 16:00 05/21/17 15:59 04/22/17 17:21 80 MLS/HR Levofloxacin 750 mg/Prmx 150 ml @ 100 mls/hr Q48H IV 04/23/17 09:00 04/28/17 08:59 Aspirin (Ecotrin Tab) 81 mg DAILY PO 04/22/17 09:00 05/22/17 08:59 04/22/17 08:30 81 MG Calcium/Vitamin D (Caltrate Plus Tab) 1 tab DAILY PO 04/22/17 09:00 05/22/17 08:59 Cholecalciferol (Vitamin D Tab) 2,000 inter.unit DAILY PO 04/22/17 09:00 05/22/17 08:59 Enoxaparin Sodium (Lovenox Inj) 40 mg QAM SQ 04/22/17 09:00 05/22/17 08:59 04/22/17 08:32 40 MG Levofloxacin (Consult) 1 ea UD PRN N/A 04/21/17 15:30 05/21/17 15:29 Pantoprazole Sodium (Protonix Tab) 40 mg QAM PO 04/22/17 09:00 05/22/17 08:59 Lactobacillus Acidophilus (Floranex Tab) 4 tab TIDM PO 04/22/17 16:45 05/22/17 16:44 04/22/17 17:21 4 TAB Objective Vital Signs Date Time Temp Pulse Resp B/P (MAP) Pulse Ox O2 Delivery O2 Flow Rate FiO2 04/22/17 08:29 37.0 86 20 122/64 (83) 93 Nasal Cannula 2.0 04/22/17 08:01 Nasal Cannula 2.0 04/22/17 04:00 37.4 83 16 122/55 (77) 96 Nasal Cannula 2.0 04/22/17 04:00 Nasal Cannula 2.0 04/22/17 00:15 Nasal Cannula 2.0 04/22/17 00:06 37.3 92 18 122/55 (77) 96 04/21/17 20:10 Nasal Cannula 2.0 04/21/17 18:45 36.8 103 22 125/66 (85) 92 Nasal Cannula 2.0 04/21/17 16:00 Nasal Cannula 2.0 04/21/17 14:57 36.9 113 18 140/51 92 Nasal Cannula 2.0 04/21/17 14:23 36.8 91 30 121/55 96 04/21/17 14:06 91 30 96 04/21/17 14:01 121/55 04/21/17 13:36 97 26 94 04/21/17 13:31 126/58 04/21/17 13:06 98 33 94 04/21/17 13:01 122/55 04/21/17 12:59 101 33 95 04/21/17 12:31 128/56 04/21/17 12:29 96 28 98 04/21/17 12:17 100 04/21/17 12:03 128/56 04/21/17 11:59 99 22 96 04/21/17 11:29 104 29 89 04/21/17 10:59 101 28 89 04/21/17 10:54 101 34 89 Physical Exam General Appearance: WD/WN, no apparent distress Eyes: normal inspection ENT: normal ENT inspection Neck: supple, no adenopathy Respiratory/Chest: chest non-tender, normal breath sounds, + crackles (on right base) Cardiovascular: regular rate, rhythm, no edema Abdomen: normal bowel sounds, non tender, soft Extremities: normal range of motion Skin: normal color Lymphatic: no adenopathy Laboratory Results Last 24 Hours Test 04/21/17 11:53 04/21/17 12:14 04/21/17 12:55 04/22/17 05:13 Troponin I < 0.015 ng/ml Bedside Lactic Acid Venous 1.43 mmol/L Lactic Acid Level 1.0 mmol/L White Blood Count 13.54 K/uL Red Blood Count 3.71 M/uL Hemoglobin 10.9 g/dL Hematocrit 33.3 % Mean Corpuscular Volume 89.8 fL Mean Corpuscular Hemoglobin 29.4 pg Mean Corpuscular Hemoglobin Concent 32.7 g/dl Platelet Count 156 K/uL Mean Platelet Volume 11.0 fL Neutrophils (%) (Auto) 85.7 % Lymphocytes (%) (Auto) 6.2 % Monocytes (%) (Auto) 7.5 % Eosinophils (%) (Auto) 0.1 % Basophils (%) (Auto) 0.1 % Neutrophils # (Auto) 11.61 K/uL Lymphocytes # (Auto) 0.84 K/uL Monocytes # (Auto) 1.01 K/uL Eosinophils # (Auto) 0.01 K/uL Basophils # (Auto) 0.01 K/uL RDW Standard Deviation 45.8 fL RDW Coefficient of Variation 13.9 % Immature Granulocyte % (Auto) 0.4 % Immature Granulocyte # (Auto) 0.06 K/uL Sodium Level 139 mmol/L Potassium Level 3.6 mmol/L Chloride Level 105 mmol/L Carbon Dioxide Level 27 mmol/L Anion Gap 7.0 mmol/L Blood Urea Nitrogen 17 mg/dl Creatinine 0.38 mg/dl Est Creatinine Clear Calc Drug Dose 86.0 ml/min Estimated GFR () 114.3 Estimated GFR (Non- 98.7 BUN/Creatinine Ratio 44.7 Random Glucose 84 mg/dl Calcium Level 8.1 mg/dl Magnesium Level 1.9 mg/dl Assessment and Plan 81 yo female with severe sepsis due to right sided multifocal pneumonia Right sided multilobar pneumonia and severe sesis in an 81 year old female who was admitted yesterday to [facility] Patient's leukocytosis has improved. Patient also is no longer tachycardic or hypoxic. will continue with Levaquin Vanco is stopped due to MRSA swab being negative no signs of shock as BP has been preserved Will downgrade patient to telemetry - Hypoxic respiratory failure:improved - Dehydration: BUN and Cr stable,will cotinue to treat with IV fluids regular diet, appetite should improve with antibiotics - GERD: PPI - DVT prophylaxis: Lovenox Continued [facility] stay due to: multiple IV medications needed Discharge planning: uncertain
--- NOTE | 2017-04-22 11:29 | NUR ---
A: Patient resting in room. Sitting in chair. VSS. Denies CP or SOB. Tolerating diet. at bedside. Call jaimes within reach. Verbalizes no needs at this time.
[2017-04-22] MEDS ORDERED: VANCOMYCIN IV 1,000 MG in SODIUM CHLORIDE 0.9% 250ML 250 ML IV SCH (12:00)
--- NOTE | 2017-04-22 14:27 | NUR ---
Pt seen due to WOCN notification. Please refer to linked assessment Addendum: 04/22/17 at [address] Amended: Links added.
--- NOTE | 2017-04-22 15:09 | NUR ---
case management note. social service for D/C planning. met with pt at bedside. pt is A&o and states she lives with her in a 1 story house with 2 CARA. She has a cane at home but states she doesn't use it. She is independent with ADL's. She states she doesn't drive often and only short distances. her provides transportation when needed. She does not have any oxygen or HH services. role of case coordinator explained. pt states she is planning to return home at D/C. She states she does not feel she needs any HH services at D/C. PT/OT evals are pending. case management to follow.
--- NOTE | 2017-04-22 15:20 | NUR ---
: Patient resting in room. Sitting in chair. VSS. Denies CP or SOB. Tolerating diet. at bedside. Call jaimes within reach. Verbalizes no needs at this time.
[2017-04-22] MEDS: LACTOBACILLUS ACIDOPHILUS (FLORANEX) TAB PO SCH (17:21)
--- NOTE | 2017-04-23 | NUR ---
ID: Assessment completed see EMR. Pt is A&Ox4 and is OOB with an assist of one in the room. Pt admitted with pneumonia. Pt has no complaints at this time. Vitals WNL. Nonpitting +2 edema noted to pts BLE. Pt is currently on 3L of O2 via nasal cannula and is sating in the 90s. Two small open areas noted to pts sacrum. Optifoam applied at this time. Pt is a high fall risk. Call jaimes within reach, pt encouraged to ring and bed alarm in use. Pt is from home and plans to return there upon discharge. No discharge date at this time.
[2017-04-23] MEDS: NSS + 20MEQ KCL 1000ML 1,000 ML IV SCH (06:03)
[2017-04-23 07:26] VITALS: BP 123/71; PULSE 80; TEMP 36.5; O2SAT 94
[2017-04-23 07:43] LABS: BASO % 0.2 %; BASO ABS # 0.02 K/uL (0-0.2); EOS % 1.6 %; EOS ABS # 0.14 K/uL (0-0.5); HEMATOCRIT 33.8 % (37-47); HEMOGLOBIN 11.1 g/dL (12.0-16.0); IG# 0.06 K/uL (0.00-0.02); LYMPH % 11.2 %; LYMPH ABS # 0.98 K/uL (1.2-3.4); MEAN CELL VOLUME 88.9 fL (80-100); MEAN CORPUSCULAR HEMOGLOBIN 29.2 pg (25-34); MEAN CORPUSCULAR HGB CONC 32.8 g/dl (32-36); MEAN PLATELET VOLUME 11.1 fL (7.4-10.4); MONO % 11.2 %; MONO ABS # 0.98 K/uL (0.11-0.59); NEUT % 75.1 %; NEUT ABS # 6.55 K/uL (1.4-6.5); PLATELET COUNT 170 K/uL (130-400); RED CELL DISTRIBUTION WIDTH CV 13.9 % (11.5-14.5); RED CELL DISTRIBUTION WIDTH SD 45.6 fL (36.4-46.3); WHITE BLOOD COUNT 8.73 K/uL (4.8-10.8)
[2017-04-23 08:16] LABS: CALCIUM 8.2 mg/dl (8.5-10.1); CREATININE 0.29 mg/dl (0.60-1.20); POTASSIUM 3.6 mmol/L (3.5-5.1)
[2017-04-23] MEDS: ASPIRIN 81 MG ECTAB PO SCH (08:46)
[2017-04-23] MEDS: PANTOprazole SOD 40 MG TAB PO SCH (08:46)
[2017-04-23] MEDS: CHOLECALCIFEROL 1000 INTER.UNIT TAB PO SCH (08:47)
[2017-04-23] MEDS: ENOXAPARIN 40 MG/0.4 ML SYR SQ SCH (08:48)
[2017-04-23] MEDS: CALCIUM 600MG + VIT D 400 IU TAB PO SCH (08:51)
[2017-04-23] MEDS: LACTOBACILLUS ACIDOPHILUS (FLORANEX) TAB PO SCH ×3 (08:57→17:10)
[2017-04-23] MEDS ORDERED: LEVOFLOXACIN / D5W 750 MG in PREMIXED IN D5W 150 ML IV SCH (09:00)
--- NOTE | 2017-04-23 10:10 | NUR ---
case management note. pt lives with her in a 1 story house and is independent with ambulation and ADL's. She plans to return home with her and without services. PT/OT evals were completed yesterday afternoon and recommend return home with HH services. CM will need to check with pt again to see if she would like HH for therapy. pt transferred to med surg room [id number]. report to unit caser in. appropriate caser in to follow.
--- NOTE | 2017-04-23 10:25 | NUR ---
CWOCN: RECEIVED REQUEST FOR CONSULT, RE: BILATERAL GLUTEAL FOLDS STAGE 2 APPROX PENCIL ERASER SIZE. FOUND PATIENT WITH MOISTURE BREAKDOWN, NOT PRESSURE ULCERS, AT PROXIMAL POINT OF GLUTEAL CLEFT. STATES SHE HAS BEEN LAYING IN BED, NOT TURNING, WEARING BRIEFS. DIFFICULT TO OBTAIN PHOTO OF BREAKDOWN. THIS NURSE ATTEMPTED TO OBTAIN PHOTO. PHOTOS POSTED ARE FOR CHAPO CARDOZA. INSTRUCTED USE OF BRIEFS, DISCOURAGED USE OF BRIEFS. INSTRUCTED TURNING/LIFTING BUTTOCKS EVERY 30 MINUTES IF CANNOT TURN. DISCUSSED USE OF STOMA POWDER AND ALOE VESTA #3. INSTRUCTED WEAKENED AREA CAN PROGRESS TO BED SORES. SAME UNDERSTOOD.
[2017-04-23] MEDS ORDERED: NURSING VERBAL MED ORDER ONE ×2 (11:00→17:30)
[2017-04-23] MEDS ORDERED: VANCOMYCIN TROUGH ONE (11:30)
--- NOTE | 2017-04-23 12:25 | NUR ---
rn [facility]: follow up appt made at Dr. Appiah's office w/ Armando MONTGOMERY on SaturdayMay 01 at 11:00 am. This info was added to the DC instructions.
--- NOTE | 2017-04-23 12:40 | Hospitalist Progress Note ---
Hospitalist Progress Note Date of Service Apr 23, 2017. (Bushra Calderón PA-C) Subjective Pt evaluation today including: conversation w/ patient, physical exam, chart review, lab review, review of studies, review of inpatient medication list Patient seen and evaluated. No acute events overnight. Reporting that she feels better on a respiratory side but still with generalized weakness. Does feel better than when she first came in. She states she has had low oxygen levels in the past mostly with walking. States she gets MONK but resolved quickly with rest and is pretty active. She states this is related to her "heart condition" and it does appear on echo she has grade II diastolic dyfunction and elevated R systolic pressures - likely need two-step on D/C Constitutional: No fever, No chills Respiratory: + cough, + dyspnea on exertion, No dyspnea at rest Cardiovascular: No chest pain, No palpitations Abdomen: + diarrhea, No pain, No nausea, No vomiting Musculoskeletal: No calf pain Female : No dysuria Heme: No abnormal bleeding/bruising Skin: No rash (Bushra Calderón, ROSAURAC) Medications Current Inpatient Medications Medications (Trade) Dose Ordered Sig/Cydney Route Start Time Stop Time Status Last Admin Dose Admin Acetaminophen (Tylenol Tab) 650 mg Q4H PRN PO 04/21/17 12:00 05/21/17 11:59 Ondansetron HCl (Zofran Inj) 4 mg Q6H PRN IV 04/21/17 12:00 05/21/17 11:59 Levofloxacin 750 mg/Prmx 150 ml @ 100 mls/hr Q48H IV 04/23/17 09:00 04/28/17 08:59 04/23/17 08:53 100 MLS/HR Aspirin (Ecotrin Tab) 81 mg DAILY PO 04/22/17 09:00 05/22/17 08:59 04/23/17 08:46 81 MG Calcium/Vitamin D (Caltrate Plus Tab) 1 tab DAILY PO 04/22/17 09:00 05/22/17 08:59 Cholecalciferol (Vitamin D Tab) 2,000 inter.unit DAILY PO 04/22/17 09:00 05/22/17 08:59 04/23/17 08:47 2,000 INTER.UNIT Enoxaparin Sodium (Lovenox Inj) 40 mg QAM SQ 04/22/17 09:00 05/22/17 08:59 04/23/17 08:48 40 MG Levofloxacin (Consult) 1 ea UD PRN N/A 04/21/17 15:30 05/21/17 15:29 Pantoprazole Sodium (Protonix Tab) 40 mg QAM PO 04/22/17 09:00 05/22/17 08:59 Lactobacillus Acidophilus (Floranex Tab) 4 tab TIDM PO 04/22/17 16:45 05/22/17 16:44 04/23/17 12:21 4 TAB Miscellaneous Information (Order Awaiting Action) 1 ea QS N/A 04/23/17 16:00 05/23/17 15:59 Miscellaneous Information (Order Awaiting Action) 1 ea QS N/A 04/23/17 16:00 05/23/17 15:59 (Bushra Calderón, PA-C) Objective Vital Signs Date Time Temp Pulse Resp B/P (MAP) Pulse Ox O2 Delivery O2 Flow Rate FiO2 04/23/17 08:10 Nasal Cannula 2.0 04/23/17 07:26 36.5 80 16 123/71 (88) 94 2.0 04/23/17 00:00 Nasal Cannula 3.0 04/22/17 23:37 36.8 79 16 131/70 (90) 98 Nasal Cannula 2.0 04/22/17 18:36 36.6 98 20 122/69 (86) 93 Nasal Cannula 3.0 04/22/17 16:11 Nasal Cannula 2.0 04/22/17 15:04 36.9 90 18 131/55 (80) 91 Nasal Cannula 3.0 (Bushra Calderón, PA-C) Physical Exam General Appearance: no apparent distress Eyes: sclerae normal ENT: hearing grossly normal Neck: supple, no JVD, trachea midline Respiratory/Chest: no respiratory distress, no accessory muscle use, + crackles (r base) Cardiovascular: regular rate, rhythm, + systolic murmur Abdomen: normal bowel sounds, non tender, soft Neurologic/Psychiatric: alert, + pertinent finding (mild tremor) Skin: normal color, warm/dry (Bushra Calderón, PA-C) Laboratory Results Last 24 Hours Test 04/23/17 07:10 White Blood Count 8.73 K/uL Red Blood Count 3.80 M/uL Hemoglobin 11.1 g/dL Hematocrit 33.8 % Mean Corpuscular Volume 88.9 fL Mean Corpuscular Hemoglobin 29.2 pg Mean Corpuscular Hemoglobin Concent 32.8 g/dl Platelet Count 170 K/uL Mean Platelet Volume 11.1 fL Neutrophils (%) (Auto) 75.1 % Lymphocytes (%) (Auto) 11.2 % Monocytes (%) (Auto) 11.2 % Eosinophils (%) (Auto) 1.6 % Basophils (%) (Auto) 0.2 % Neutrophils # (Auto) 6.55 K/uL Lymphocytes # (Auto) 0.98 K/uL Monocytes # (Auto) 0.98 K/uL Eosinophils # (Auto) 0.14 K/uL Basophils # (Auto) 0.02 K/uL RDW Standard Deviation 45.6 fL RDW Coefficient of Variation 13.9 % Immature Granulocyte % (Auto) 0.7 % Immature Granulocyte # (Auto) 0.06 K/uL Sodium Level 141 mmol/L Potassium Level 3.6 mmol/L Chloride Level 110 mmol/L Carbon Dioxide Level 23 mmol/L Anion Gap 8.0 mmol/L Blood Urea Nitrogen 13 mg/dl Creatinine 0.29 mg/dl Est Creatinine Clear Calc Drug Dose 112.6 ml/min Estimated GFR () 125.0 Estimated GFR (Non- 107.8 BUN/Creatinine Ratio 43.6 Random Glucose 87 mg/dl Calcium Level 8.2 mg/dl (Bushra Calderón, PA-C) Assessment and Plan 81 yo female with severe sepsis due to right sided multifocal pneumonia Right sided multilobar pneumonia and severe sesis in an 81 year old female who was admitted yesterday to Tele Severe Sepsis fron CAP with Acute Hypoxic Respiratory Failure: - Leukocytosis resolved and clinically improving; continues to report generalized fatigue; reports H/O low sats with ambulation but states she doesn' t utilize O2 - does have elevated R systolic pressures - will obtain two-step prior to D/C as still with occ. O2 use - Levaquin 750 mg po Q48H Dehydration: - Kidney function remaining stable - will hold fluids and allow oral intake Diarrhea: - Continue probiotics and yogurt - likely loose from Abx but mindful of possible C. diff - no fever or abdominal pain DVT Prophylaxis: Lovenox 40 mg SC daily Disposition: - Plan to return home with [facility]; patient feeling weak and fatigued today - possible D/c tomorrow Discharge planning: home with home health (Busrha Calderón PA-C) I examined patient and discussed treatment plan with patient and APC. I also answered all of the patients questions. My exam is below: General Appearance: WD/WN, no apparent distress Eyes: normal inspection ENT: normal ENT inspection Neck: supple, no adenopathy Respiratory/Chest: chest non-tender, normal breath sounds, r base crackles Cardiovascular: regular rate, rhythm, no edema Abdomen: normal bowel sounds, non tender, soft Extremities: normal range of motion Skin: normal color Lymphatic: no adenopathy Will contiue with current antibiotics. Patient continue withstanding room air without oxygen. Will see how patient manages ambulating. If she does poorly may consider a 2 step. (Kirby Naqvi M.D.)
[2017-04-23 15:25] VITALS: BP 120/70; PULSE 96; TEMP 37; O2SAT 93
[2017-04-23 16:00] VITALS: O2SAT 93
--- NOTE | 2017-04-23 16:00 | NUR ---
A: pt alert and oriented x4. OOB w/ supervision . gait is steady. pt on room air . saturation holding int mid 90s. no sob w/ exertion. pt voiding w/o issue. she states she has stress incontinence and must wear brief. pt refuses to remove brief and has been educated on moisture excess w/ skin breakdown on buttocks. pt had 1 BM today. stoma powder and cream #3 being applied to open areas on buttocks. saline lock intact and flushing w/o issue. pt ringing for assist as needed. she is tolerating diet but seems to have poor appetite at this time. aspiration precautions being observed. will continue care.
--- NOTE | 2017-04-23 19:09 | NUR ---
pt called this RN into room . she c/o 'funny' feeling in left arm in AC area. area is slightly pink . there is a hard , raised area in area of AC and pt states it is tender. called resident burial needs salesperson who came to visit pt . upper extrem doppler ordered. will follow.
--- NOTE | 2017-04-23 21:13 | DIAGNOSTIC IMAGING REPORT ---
L VENOUS DOPPLER UPR EXT UNIL HISTORY: 81 years-old Female swollen in area of AC acute left upper extremity swelling, most pronounced in the region of the antecubital fossa. COMPARISON: None available TECHNIQUE: Multiple real-time sonographic images of the left upper extremity deep venous structures were obtained assessing grayscale appearance, color and spectral flow FINDINGS: The internal jugular, subclavian, axillary, brachial, radial and ulnar veins are patent and unremarkable. Echogenic occlusive thrombus is noted within the left cephalic vein at the level of the antecubital fossa and distal portion of the upper arm. The basilic vein is not well seen secondary to patient positioning. IMPRESSION: 1. No sonographic evidence of deep venous thrombosis. 2. Occlusive superficial venous thrombosis of the cephalic vein at the level of the antecubital fossa and distal portion of the left upper arm. The above report was generated using voice recognition software. It may contain grammatical, syntax or spelling errors. Electronically signed by: Gael Avelar M.D. 04/23/2017 9:11 PM Dictated Date/Time: 04/23/2017 9:08 PM
--- NOTE | 2017-04-23 21:42 | NUR ---
upper extremity ultrasound completed and resulted. report shows occlusive clot in cephalic vein. called this to resident environmental studies faculty member at this time.
[2017-04-23 23:09] VITALS: BP 135/71; PULSE 87; TEMP 37; O2SAT 92
--- NOTE | 2017-04-24 02:00 | NUR ---
ID: AAO x 4. VSS, sats 93-95% room air. Moist non-productive cough. Denies any SOB. Tolerating diet. Up out of bed with supervision. IV SL, antibiotics changed to PO. Skin care provided to open areas on bilateral buttocks. See EMR for full assessment. SS following, anticipate return home on discharge, may need home health set up for short-term.
[2017-04-24] MEDS ORDERED: OMEPRAZOLE 20 MG PO SCH (06:30)
[2017-04-24 07:31] LABS: HEMATOCRIT 33.2 % (37-47); HEMOGLOBIN 11.4 g/dL (12.0-16.0); MEAN CELL VOLUME 86.9 fL (80-100); MEAN CORPUSCULAR HEMOGLOBIN 29.8 pg (25-34); MEAN CORPUSCULAR HGB CONC 34.3 g/dl (32-36); MEAN PLATELET VOLUME 11.1 fL (7.4-10.4); PLATELET COUNT 195 K/uL (130-400); RED CELL DISTRIBUTION WIDTH CV 13.5 % (11.5-14.5); RED CELL DISTRIBUTION WIDTH SD 43.1 fL (36.4-46.3); WHITE BLOOD COUNT 8.64 K/uL (4.8-10.8)
[2017-04-24 07:34] VITALS: BP 153/69; PULSE 81; TEMP 36.8; O2SAT 91
[2017-04-24 07:59] LABS: CALCIUM 8.3 mg/dl (8.5-10.1); CREATININE 0.35 mg/dl (0.60-1.20); POTASSIUM 3.1 mmol/L (3.5-5.1)
[2017-04-24] MEDS ORDERED: CHOLECALCIFEROL 2000 UNIT PO SCH (08:00)
[2017-04-24] MEDS ORDERED: [UNRECOGNIZED DRUG - OTHER] PO SCH (08:00)
[2017-04-24] MEDS ORDERED: CALCIUM 600 MG PO SCH (08:00)
[2017-04-24] MEDS ORDERED: VIT D PO SCH (08:00)
[2017-04-24] MEDS: LACTOBACILLUS ACIDOPHILUS (FLORANEX) TAB PO SCH ×2 (08:51→12:28)
[2017-04-24] MEDS: ASPIRIN 81 MG ECTAB PO SCH (08:51)
[2017-04-24] MEDS: ENOXAPARIN 40 MG/0.4 ML SYR SQ SCH (08:52)
[2017-04-24] MEDS: POTASSIUM CHLORIDE 10 MEQ TABCR PO STA ×2 (08:58→10:55)
[2017-04-24] MEDS ORDERED: NURSING DECISION MEDICATION ORDER SCH (10:30)
[2017-04-24] MEDS ORDERED: POTASSIUM CHLORIDE 20 MEQ/15 ML UDC PO ONE (10:45)
[2017-04-24] MEDS ORDERED: VANCOMYCIN TROUGH ONE (11:30)
[2017-04-24] MEDS ORDERED: LVQ750 PO ×2 (12:56)
[2017-04-24] MEDS ORDERED: LCTX PO ×2 (12:56)
--- NOTE | 2017-04-24 13:06 | Discharge Instructions ---
Discharge Instructions Date of Service Apr 24, 2017. Admission Reason for Admission: Pneumonia, Sepsis Discharge Discharge Diagnosis / Problem: Pneumonia Discharge Goals Goal(s): Decrease discomfort, Improve function, Increase independence Activity Recommendations Activity Limitations: resume your previous activity . Instructions / Follow-Up Instructions / Follow-Up Pneumonia: - You will continue antibiotics every other day. You will need to take Levaquin (your antibiotic) one dose on 04/25 and then on 04/27. This medication is dosed by your kidney function so that it does not harm your kidneys. Your kidneys will slowly process this medication so on the days you do not take it, you will still have medication in your system - You can crush this medication. Recommend to take your pills with pudding or applesauce to get the medication down easier. Superficial Blood Clot from IV Site: - You developed a blood clot in the small superficial veins of your arm where your IV was. - You do not need a blood thinner for this. Recommend to use a warm compress to the area if you develop pain, swelling, redness. - If this area gets worse please have it checked out in the ER or call your family doctor Diarrhea: - Your stool could be loose on antibiotics. Recommend to continue a probiotic. A prescription will be given but you can use over the counter probiotics too. - Recommend to eat yogurt too Follow-Up: - Keep your originally scheduled appointments with Dr. Aguirre and Dr. Decker - Follow up appt made at Dr. Appiah's office w/ Armando MONTGOMERY on SaturdayMay 01 at 11:00 am. Current Hospital Diet Patient's current hospital diet: Regular Diet Discharge Diet Recommended Diet: Regular Diet Pending Studies Studies pending at discharge: no Medical Emergencies . Who to Call and When: Medical Emergencies: If at any time you feel your situation is an emergency, please call 911 immediately. . Non-Emergent Contact Non-Emergency issues call your: Primary Care Provider Call Non-Emergent contact if: you have a fever, your pain is concerning you, you have any medication questions . . "Provider Documentation" section prepared by Bushra Calderón. . VTE Core Measure Inpt VTE Proph given/why not?: Enoxaparin (Lovenox)SQ
[2017-04-24 13:44] VITALS: BP 153/69; PULSE 81; TEMP 36.8; O2SAT 91
--- NOTE | 2017-04-24 15:13 | NUR ---
As per attending, patient is cleared for discharge to home with home health today. Talked with patient about home health services. Patient in agreement with home health services. We talked about home health agencies for her area and [facility] Referral to [facility] Agency. Talked with [facility] nurse liaison about patient. They can accept the patient. Plan discharge to home today.
--- NOTE | 2017-04-24 15:22 | NUR ---
a: patient discharged to home per md orders. saline lock removed- catheter intact. discharge instructions discussed with patient. all questions answered. patient taken to entrance via wheelchair by volunteer with all belongings.
--- NOTE | 2017-04-24 21:56 | Discharge Summary ---
Discharge Summary Date of Service Apr 24, 2017. Discharge Summary Admission Date: Apr 21, 2017 at 15:10 Discharge Date: Apr 24, 2017 Discharge Disposition: Home with services Principal Diagnosis: Sepsis from CAP Problems/Secondary Diagnoses: 1. GERD 2. Temporal Arteritis 3. Vitamin D Deficiency 4. OA 5. Elevated R Systolic Pressures on Echo 6. Chronic Kidney Disease 7. LUE Superficial Thrombosis after IV Line Procedures: CHEST ONE VIEW PORTABLE FINDINGS: Atherosclerosis of the aortic arch. Cardiac silhouette mildly enlarged. Interval development of a focal opacity in the right upper and lower lobes. Small right pleural effusion. No pneumothorax. Left lung and pleural space clear. Scoliosis and osteopenia. General changes of the left glenohumeral joint. Upper abdomen normal. IMPRESSION: 1. Findings consistent with pneumonia most likely involving the right upper and lower lobes with a small right parapneumonic effusion. L VENOUS DOPPLER UPR EXT UNIL FINDINGS: The internal jugular, subclavian, axillary, brachial, radial and ulnar veins are patent and unremarkable. Echogenic occlusive thrombus is noted within the left cephalic vein at the level of the antecubital fossa and distal portion of the upper arm. The basilic vein is not well seen secondary to patient positioning. IMPRESSION: 1. No sonographic evidence of deep venous thrombosis. 2. Occlusive superficial venous thrombosis of the cephalic vein at the level of the antecubital fossa and distal portion of the left upper arm. Consultations: 1. PT/OT 2. Respiratory Therapy Medication Reconciliation New Medications: Lactobacillus Acidophilus (Floranex) 1 Tab Tab 4 TAB PO TIDM for 7 Days, TAB Levofloxacin (Levofloxacin) 750 Mg Tab 750 MG PO Q2D@11, #2 TAB Take one dose on 04/25 and one dose on 04/27 Continued Medications: Aspirin (Aspirin Ec) 81 Mg Tab 81 MG PO DAILY Calcium/Vitamin D (Os-Ancelmo 500 Plus D) Tab 1 TAB PO DAILY, TAB Cholecalciferol (Vitamin D 1000 Unit) 1,000 Unit Cap 2000 INTER.UNIT PO DAILY, CAP Multivitamin (Multivitamin) Tab 1 TAB PO DAILY, TAB Omeprazole (Omeprazole) 20 Mg Tab 20 MG PO DAILY Discharge Exam Review of Systems: Constitutional: + fatigue, No fever, No chills ENT: No nasal symptoms, No sore throat Respiratory: + cough, No wheezing, No dyspnea on exertion, No dyspnea at rest Cardiovascular: No chest pain Abdomen: No pain, No nausea, No vomiting, No diarrhea, No constipation Musculoskeletal: No swelling, No calf pain Genitourinary - Female: No dysuria Hematologic / Lymphatic: No abnormal bleeding/bruising Integumentary: No rash Physical Exam: General Appearance: WD/WN, no apparent distress Eyes: sclerae normal ENT: hearing grossly normal Neck: supple, no JVD, trachea midline Respiratory/Chest: no respiratory distress, no accessory muscle use, + decreased breath sounds (in R mid-lung) Cardiovascular: regular rate, rhythm Abdomen / GI: normal bowel sounds, non tender, soft Extremities: no calf tenderness, no pedal edema, + pertinent finding Neurologic/Psychiatric: alert, oriented x 3 Skin: normal color Hospital Course ADMISSION: 81 yo female with 4 days of generalized malaise, fatigue, poor appetite, fever and chills and night sweats. Admits to cough with minimum sputum production. She has not really had anything to eat in 4 days, some liquid intake. Still making urine but less. She reports never having an illness like this. In the ED she was tachycardic, leukocytosis of 22k, and she was hypoxic. CXR shows right upper and middle lobe infiltrate. Started on IV fluids and Levaquin and admission requested. Patient has a medical history of GERD and temporal arteritis. No significant history of IL, CVA, DM or cancer. HOSPITAL COURSE: Ms. Painter was admitted for severe sepsis with acute hypoxic respiratory failure from CAP. She was initiated on Levaquin with resolution of her leukocytosis and was weaned off supplemental O2. A two-step was performed but no home O2 need identified. Reporting feeling well from a respiratory standpoint but complains of fatigue, reporting having only broken sleep during admission. She will be continued on Levaquin 750 mg Q48H dosing per renal function and will finish a 7 day course. Recommend a F/U CXR in approx. one month to monitor for resolution. Supervising Note Dr. Naqvi I examined patient and performed a history on the patient while also discussing treatment plan with patient and APC. I also answered all of the patients questions. My exam is below: General Appearance: WD/WN, no apparent distress Eyes: normal inspection ENT: normal ENT inspection Neck: supple, no adenopathy Respiratory/Chest: chest non-tender, normal breath sounds, r base crackles Cardiovascular: regular rate, rhythm, no edema Abdomen: normal bowel sounds, non tender, soft Extremities: normal range of motion Skin: normal color Lymphatic: no adenopathy I am unsure what was the cause of the antecubital fossa superficial thrombophlebitis, history of temporal arteritis and IV line placement may have played a role. Total Time Spent: Greater than 30 minutes This includes examination of the patient, discharge planning, medication reconciliation, and communication with other providers. Discharge Instructions Please refer to the electronic Patient Visit Report (Discharge Instructions) for additional information. Additional Copies To Ethel Appiah MD
--- NOTE | 2017-04-25 06:24 | EDITING REQUIRED CODING QUERY ---
CODING QUERY To promote full compliance with coding requirements relating to patient care, provider participation is requested in all cases of vault installer uncertainty. Please assist us with the question(s) below: Coding Question(s): Please clarify below, in your clinical opinion, regarding documentation of LUE Superficial Thrombosis after IV Line. ( x) LUE Superficial Thrombosis was a complication from IV Line ( ) LUE Superficial Thrombosis was not a complication from the IV Line Physician's Response(s): Thank you Nallely Messina Principal Diagnosis: "_that condition established after study, to be chiefly responsible for occasioning the admission of the patient to the hospital for care." Co-Existing Principal Diagnosis: "_when two or more diagnoses equally meet the criteria for principal diagnosis as determined by the circumstances of admission, diagnostic work up, and/or therapy provided, and the Alphabetic Index, Tabular List, or another coding guideline does not provide sequencing direction, any one of the diagnoses may be sequenced first." "When the physician has documented what appears to be a current diagnosis in the body of the record, but has not included the diagnosis in the final diagnostic statement, the physician should be asked whether the diagnosis should be added." ([facility] 2 QTR90. p3-4)
[2017-04-25] MEDS ORDERED: LEVOFLOXACIN 750 MG TAB PO SCH (11:00)
== END 2017-04-24 15:24 | disposition home health service (06) | DRG 871 ==
LOC: EDBD 08:54 → C.EDA 08:54 → ENRESERV 12:17 → C.2E 15:10 → ENRESERV 04-22 18:59 → C.4E 04-22 20:10
PROVIDERS: ADMIT Internal Medicine; ATTEND Internal Medicine Sports Medicine
DX: A41.9 Sepsis, unspecified organism (principal); J18.9 Pneumonia, unspecified organism; J96.01 Acute respiratory failure with hypoxia; T82.868A Thrombosis due to vascular prosthetic devices, implants and grafts, initial encounter; I82.612 Acute embolism and thrombosis of superficial veins of left upper extremity; E86.0 Dehydration; R19.7 Diarrhea, unspecified; K21.9 Gastro-esophageal reflux disease without esophagitis; E55.9 Vitamin D deficiency, unspecified; N18.9 Chronic kidney disease, unspecified; Z51.81 Encounter for therapeutic drug level monitoring; Z79.899 Other long term (current) drug therapy; Z79.82 Long term (current) use of aspirin; Z87.39 Personal history of other diseases of the musculoskeletal system and connective tissue; Z87.440 Personal history of urinary (tract) infections; Z82.49 Family history of ischemic heart disease and other diseases of the circulatory system; Z82.61 Family history of arthritis; Y92.239 Unspecified place in hospital as the place of occurrence of the external cause; Y84.8 Other medical procedures as the cause of abnormal reaction of the patient, or of later complication, without mention of misadventure at the time of the procedure

== ENCOUNTER → 2017-05-03 | Outpatient (CLI) | payer BC ==
[~2017-05-03] MED LIST changes: +ASPI81TA28 PO; +CALC500C70 PO; +LCTX PO; +LVQ750 PO; +MULT-506 PO
--- NOTE | 2017-05-03 15:38 | DIAGNOSTIC IMAGING REPORT ---
CHEST 2 VIEWS ROUTINE HISTORY: Pneumonia. Follow-up. COMPARISON: Chest 04/21/2017. FINDINGS: Near complete resolution of the right upper lobe airspace opacity. Diffuse interstitial thickening, unchanged. This likely chronic. The heart remains mildly enlarged. Stable small right pleural effusion. No pneumothorax. IMPRESSION: 1. Near complete resolution of the right upper lobe airspace opacity consistent with a resolving pneumonia. 2. No new focal lung consolidations. 3. Small right pleural effusion persists. Electronically signed by: Anant Gilliam M.D. 05/03/2017 3:36 PM Dictated Date/Time: 05/03/2017 3:35 PM
[2017-05-03 16:15] LABS: BASO % 0.7 %; BASO ABS # 0.06 K/uL (0-0.2); EOS % 5.5 %; EOS ABS # 0.48 K/uL (0-0.5); HEMATOCRIT 36.8 % (37-47); IG# 0.07 K/uL (0.00-0.02); LYMPH % 17.4 %; LYMPH ABS # 1.51 K/uL (1.2-3.4); MEAN CELL VOLUME 88.7 fL (80-100); MEAN CORPUSCULAR HEMOGLOBIN 28.9 pg (25-34); MEAN CORPUSCULAR HGB CONC 32.6 g/dl (32-36); MEAN PLATELET VOLUME 10.2 fL (7.4-10.4); MONO % 8.4 %; MONO ABS # 0.73 K/uL (0.11-0.59); NEUT % 67.2 %; NEUT ABS # 5.84 K/uL (1.4-6.5); PLATELET COUNT 399 K/uL (130-400); RED CELL DISTRIBUTION WIDTH CV 13.7 % (11.5-14.5); RED CELL DISTRIBUTION WIDTH SD 44.2 fL (36.4-46.3); WHITE BLOOD COUNT 8.69 K/uL (4.8-10.8)
[2017-05-03 16:46] LABS: ALBUMIN 2.7 gm/dl (3.4-5.0); ALT/SGPT 21 U/L (12-78); AST/SGOT 19 U/L (15-37); BLOOD UREA NITROGEN 14 mg/dl (7-18); CALCIUM 8.7 mg/dl (8.5-10.1); CARBON DIOXIDE 29 mmol/L (21-32); CREATININE 0.53 mg/dl (0.60-1.20); GLUCOSE 95 mg/dl (70-99); POTASSIUM 3.7 mmol/L (3.5-5.1); SODIUM 136 mmol/L (136-145); TOTAL PROTEIN 6.8 gm/dl (6.4-8.2)
[2017-05-03 16:51] LABS: ALKALINE PHOSPHATASE 91 U/L (45-117)
== END | disposition home or self-care (01) ==
LOC: C.RAD 14:49
PROVIDERS: ATTEND Nurse Practitioner Family
DX: J18.9 Pneumonia, unspecified organism (principal); I51.9 Heart disease, unspecified; I50.31 Acute diastolic (congestive) heart failure; J90 Pleural effusion, not elsewhere classified

== ENCOUNTER → 2017-08-12 | Outpatient (CLI) | payer BC ==
[~2017-08-12] MED LIST changes: -ASPEC81 PO; -Calcium PO; -MULTCHW4 PO; -RANI150C4 PO
--- NOTE | 2017-08-12 14:52 | DIAGNOSTIC IMAGING REPORT ---
SACRUM COCCYX MIN 2 VIEWS HISTORY: 81 years-old Female M81.8 Steroid-induced [id number] Tail bone painSpecific a acute tailbone pain COMPARISON: None available TECHNIQUE: 3 views of the sacrum and coccyx FINDINGS: Mild degenerative changes of the bilateral SI joints without erosive changes to suggest sacroiliitis. Sacral ala appear intact. There is apex dorsal angulation of approximately 76 degrees within the region of the sacrococcygeal junction which is likely chronic without acute fracture or dislocation identified. The bones appear mildly demineralized. Multilevel severe intervertebral disc space narrowing with endplate spurring and facet arthrosis of the lumbar spine. 6 mm anterolisthesis L4 on L5 is likely degenerative. Calcifications of the pelvis suggest phleboliths. Indeterminate 5 mm round calcification is seen adjacent to the right L3 transverse process. IMPRESSION: 1. [place] dorsal angulation of the sacrococcygeal junction suggests chronic etiology without definite acute fracture or dislocation identified. 2. Mild degenerative changes of the SI joints. 3. No evidence of sacral insufficiency fracture. The above report was generated using voice recognition software. It may contain grammatical, syntax or spelling errors. Electronically signed by: Gael Avelar M.D. 08/12/2017 2:51 PM Dictated Date/Time: 08/12/2017 2:46 PM
== END | disposition home or self-care (01) ==
LOC: C.RAD1850 14:16
PROVIDERS: ATTEND Internal Medicine Rheumatology
DX: M35.3 Polymyalgia rheumatica (principal); M81.8 Other osteoporosis without current pathological fracture; E55.9 Vitamin D deficiency, unspecified; M81.0 Age-related osteoporosis without current pathological fracture; M53.3 Sacrococcygeal disorders, not elsewhere classified

== ENCOUNTER → 2017-08-13 | Outpatient (CLI) | payer BC | END | disposition home or self-care (01) | LOC: C.MAMM 13:17 | PROVIDERS: ATTEND Internal Medicine Rheumatology | DX: M81.8 Other osteoporosis without current pathological fracture (principal); M81.0 Age-related osteoporosis without current pathological fracture; M85.89 Other specified disorders of bone density and structure, multiple sites ==